=== PATIENT | male | born 1980 | race Caucasian/White ===

== ENCOUNTER 2016-09-06 16:50 | Emergency (ER) | payer OTHER ==
[~2016-09-06] VITALS: Ht 188 cm; Wt 220.0 kg
[2016-09-06 17:08] VITALS: BP 139/72; PULSE 85; RESP 16; O2SAT 96
[2016-09-06 17:17] VITALS: BP 139/72; PULSE 85; RESP 16; O2SAT 96
--- NOTE | 2016-09-06 18:25 | ED.REPORT ---
HPI-Trauma Minor / Fall Date of Service Sep 06, 2016 ED Provider: Dr. Yannick Garcia D.O. A healthy 35 year old male presents to the ED with left-sided pain after falling eight feet off a ladder just prior to arrival. The patient did not hit his head or lose consciousness. He now reports left elbow pain, left leg pain, left-sided abdominal pain, and left hip pain. He denies neck pain or other symptoms. Nursing Notes Stated Complaint: FELL FROM LADDER/L ARM AND HIP PAIN Chief Complaint: Multiple Trauma/Fall Nursing Notes Reviewed: Yes Allergies: Coded Allergies: Penicillins (Verified Allergy, Unknown, 09/06/16) General Time Seen by MD: 18:25 Chief Complaint Fall, Slipped Hx Obtained From: Patient Arrived By: Walk-in Onset Occurred: Just prior to arrival Symptom Duration: Since onset Caused by: Accidental, Fall from height... (Off ladder ) Location: Abdomen Elbow left Hip left Leg left Quality: Painful Severity: Current: Moderate Severity: Maximum: Moderate Associated with: Denies: Loss of consciousness, Neck pain Pertinent Negative: Relieved by nothing Context: Immunizations Tetanus w/in 5 - 10 yrs (2010) Recent Healthcare: No recent doctor visit Past Medical History Past Medical History None reported Past Surgical History None reported Smoking History Unknown if Ever Smoker Ambulatory Status Independent Review of Systems Constitutional: Denies: Fever Respiratory: Denies: Non-productive cough, Shortness of breath Musculoskeletal: Reports: Extremity pain (Left leg), Joint pain (Left elbow, left hip), Denies: Neck pain Neurologic: Denies: Change LOC, Headache Complete sys rev & neg: except as marked. GI: Reports: Abdominal pain (Left-sided), Denies: Diarrhea, Vomiting Physical Exam Initial Vital Signs Vital Signs (First) Date Time Temp Pulse Resp B/P Pulse Ox O2 Delivery O2 Flow Rate FiO2 09/06/16 17:08 36.6 85 16 139/72 96 Room Air Initial VS: Reviewed Head / Eyes: Atraumatic, Normocephalic ENT: Conjunctiva normal, No scleral icterus Respiratory: Breath sounds normal, Clear to auscultation, No respiratory distress Cardiovascular: Regular rate & rhythm, Heart sounds normal Abdomen / GI: Soft, Non-tender Skin: Warm, Dry, No cyanosis Neurologic: Alert, Oriented, Nonfocal Psychiatric: Mood/affect normal, Behavior normal, Normal thought content General/Constitutional: Awake, Alert, No acute distress Neck: Atraumatic, Supple, Full range of motion, Non-tender Back: Atraumatic, Inspection NL Upper Extremity / MS: Neurologic intact, Vascular intact Left Elbow: Positive: Joint effusion present (Over radial head), Tenderness present... Lower Extremity / Pelvis / MS: Neurologic intact, Vascular intact Left Hip: Positive: Tenderness present... Interpretation & Diagnostics X-Ray Interpretation Xray Interpretation: IMPRESSION: Radial head and neck fracture, with associated elbow joint effusion. Dictated by: Reynaldo Mandujano M.D. on 09/06/2016 at 19:02 Study Performed: 3 View X-Ray Ordered: Elbow left Interpretation / Wet Read by: Interpret - Radiologist Xray Interpretation: IMPRESSION: No acute bony injuries of the pelvic ring or left hip. Dictated by: Reynaldo Mandujano M.D. on 09/06/2016 at 19:03 X-Ray Ordered: Pelvis, Hip left Interpretation / Wet Read by: Interpret - Radiologist Procedures Splint Post-Application Eval Extremity Condition: Cap refill < 2 sec, Distal sensation intact, Distal motor Intact, No compartment syndrome Re-Eval/Medical Decision Re-Evaluation/Progress #1: Time of Eval: 19:21 Patient Status: Condition improved Re-Evaluation/Progress Note: Discussed with patient x-ray results, diagnosis, and plan for discharge after splinting. Follow-up and return to the ER instructions given. Patient agrees with plan for care and all questions were addressed. Re-Evaluation/Progress #2: Time of Eval: 20:43 Patient Status: Condition improved Re-Evaluation/Progress Note: Splint checked. Additional physical exam performed. Counseled Regarding: Diagnosis, Need for follow-up, When/why to return to ED Discharge & Departure Impression: Primary Impression: Left radial head fracture Encounter type: initial encounter Fracture type: closed Fracture alignment : nondisplaced Qualified Code: S52.125A - Nondisplaced fracture of head of left radius, initial encounter for closed fracture Additional Impression: Contusion of left hip Encounter type: initial encounter Qualified Code: S70.02XA - Contusion of left hip, initial encounter Disposition: Home Discharge Condition All VS Reviewed: Yes Condition: Improved Patient Instructions: Contusions in Adults (ED), Elbow Fracture in Adults (ED) , Splint Care (ED) Additional Instructions: Your x-ray indicated a left elbow fracture. Keep your elbow immobilized. Follow-up with the referral orthopedic surgeon. Call tomorrow to set up an appointment. 1-2 Percocet every six hours as needed for pain. Do not drink alcohol, drive, or consume acetaminophen while taking Percocet. Call your primary care provider tomorrow for a follow-up appointment. Return to the ER with any new or worsening symptoms. Referrals: Marzena Bruno PA-C (PCP) Deon Noland MD Attestation Portions of this note were transcribed by Vianey Bob. I, Dr. Garcia, personally performed the history, physical exam, and medical decision-making; I reviewed and confirmed the accuracy of the information in the transcribed note. Signed by: Reji Camacho, 09/06/2016, 21:05 copies to: Marzena Bruno PA-C; Deon Noland MD, Todd P DO Sep 06, 2016 18:25 VIANEY BOB Sep 06, 2016 18:33
[2016-09-06] MEDS ORDERED: HYDROmorphone 1 mg/mL Inj IM ONE (18:30)
[2016-09-06] MEDS ORDERED: Ondansetron 8 mg ODT Tablet PO ONE (18:30)
--- NOTE | 2016-09-06 19:10 | DRSVH ---
PROCEDURE: X-RAY PELVIS W/LAT HIP (LT) ([id number]) INDICATIONS: 35 year-old male with left pelvic and hip pain after fall from ladder. TECHNIQUE: AP pelvis with lateral view(s) of the left hip(s). COMPARISON: None. FINDINGS: Bones: No fractures or dislocations. Pelvic ring appears intact. No suspicious bony lesions. Soft tissues: The visualized bowel gas pattern is normal. No suspicious soft tissue calcifications. IMPRESSION: No acute bony injuries of the pelvic ring or left hip. Dictated by: Reynaldo Mandujano M.D. on 09/06/2016 at 19:03 Approved by: Reynaldo Mandujano M.D. on 09/06/2016 at 19:04
--- NOTE | 2016-09-06 19:10 | DRSVH ---
PROCEDURE: X-RAY LEFT ELBOW COMPLETE, MINIMUM THREE VIEWS ([id number]) INDICATIONS: 35 year-old male with left elbow pain after falling from ladder. TECHNIQUE: 3 views of the elbow were acquired. COMPARISON: None. FINDINGS: Bones: There is minimally displaced fracture of the radial head and neck. No suspicious bony lesions . Soft tissues: There is elbow joint effusion, with anterior fat pad elevation. No suspicious soft tis justen calcifications. IMPRESSION: Radial head and neck fracture, with associated elbow joint effusion. Dictated by: Reynaldo Mandujano M.D. on 09/06/2016 at 19:02 Approved by: Reynaldo Mandujano M.D. on 09/06/2016 at 19:03
[2016-09-06] MEDS ORDERED: oxyCODONE-Acetamin 5-325 mg Tablet PO ONE (19:20)
== END 2016-09-06 21:14 | disposition home or self-care (01) ==
LOC: SED 16:50
DX: S52.125A Nondisplaced fracture of head of left radius, initial encounter for closed fracture (principal); S70.02XA Contusion of left hip, initial encounter; W11.XXXA Fall on and from ladder, initial encounter; Y92.59 Other trade areas as the place of occurrence of the external cause; Y93.89 Activity, other specified; Y99.0 Civilian activity done for income or pay; Z88.0 Allergy status to penicillin
CPT/HCPCS: 29125; 73080; 73501; 96372; 99284; J1170